=== PATIENT | female | born 1980 | race Caucasian/White ===

== ENCOUNTER 2018-08-11 13:34 | Outpatient (CLI) | payer BC ==
[2018-08-11] MEDS ORDERED: Lidocaine 4% Topical Sol 50 ML BOT ONE (15:00)
[2018-08-11] MEDS ORDERED: Sodium Chloride 0.9% 15 ML NEB ONE (15:00)
== END 2018-08-11 13:35 | disposition home or self-care (01) ==
LOC: WCC 13:34
PROVIDERS: ATTEND Family Medicine
DX: S71.102D Unspecified open wound, left thigh, subsequent encounter (principal)
CPT/HCPCS: 97605; A4218

== ENCOUNTER 2018-08-17 13:42 | Outpatient (CLI) | payer BC ==
[2018-08-17] MEDS ORDERED: Lidocaine 4% Topical Sol 50 ML BOT ONE (18:00)
[2018-08-17] MEDS ORDERED: Sodium Chloride 0.9% 15 ML NEB ONE (18:00)
== END 2018-08-17 13:43 | disposition home or self-care (01) ==
LOC: WCC 13:42
PROVIDERS: ATTEND Family Medicine
DX: T81.89XD Other complications of procedures, not elsewhere classified, subsequent encounter (principal)
CPT/HCPCS: 97605; A4218

== ENCOUNTER 2018-08-21 12:03 | Outpatient (CLI) | payer BC ==
[~2018-08-21 12:03] MED LIST: Lidocaine 4% Topical Sol 50 ML BOT ONE
== END 2018-08-21 12:04 | disposition home or self-care (01) ==
LOC: WCC 12:03
PROVIDERS: ATTEND Family Medicine
DX: T81.89XD Other complications of procedures, not elsewhere classified, subsequent encounter (principal)
CPT/HCPCS: 97605

== ENCOUNTER 2018-08-24 16:12 | Outpatient (CLI) | payer BC ==
[~2018-08-24 16:12] MED LIST changes: +Sodium Chloride 0.9% 15 ML NEB ONE
== END 2018-08-24 16:13 | disposition home or self-care (01) ==
LOC: WCC 16:12
PROVIDERS: ATTEND Family Medicine
DX: T81.89XD Other complications of procedures, not elsewhere classified, subsequent encounter (principal)
CPT/HCPCS: 97605; A4218; Q4166-KX-JC

== ENCOUNTER 2018-08-28 13:24 | Outpatient (CLI) | payer BC ==
[~2018-08-28 13:24] MED LIST changes: -Lidocaine 4% Topical Sol 50 ML BOT ONE
== END 2018-08-28 13:25 | disposition home or self-care (01) ==
LOC: WCC 13:24
PROVIDERS: ATTEND Family Medicine
DX: S71.102D Unspecified open wound, left thigh, subsequent encounter (principal)
CPT/HCPCS: 97605; A4218

== ENCOUNTER 2018-08-31 13:54 | Outpatient (CLI) | payer BC ==
--- NOTE | 2018-08-31 14:08 | HP ---
HISTORY OF PRESENT ILLNESS: Ms. Virginie Moncada is a is a very pleasant 37-year-old who presents to [facility] for evaluation of 3 nonhealing surgical wounds of the left medial thigh subsequent to coronary artery bypass grafting x3 on 07/03/2018. The nonhealing surgical wounds of the left medial thigh are at a harvest site of the greater saphenous vein. The patient states that approximately 1 month after undergoing coronary artery bypass grafting x3 she noted drainage from her left medial thigh. She states that she presented to the emergency department because of pain of her left medial thigh associated with swelling and erythema. The patient states that an ultrasound was obtained in the emergency department. She states that she was seen by Dr. Henson on 08/07/2018, in his office and on the following day underwent surgery for the infectious process of her left medial thigh on 08/08/2018. The patient states that negative pressure therapy was initiated intraoperatively. The patient was subsequently referred to the [facility] Center for assistance with dressing changes of the wound VAC. PAST MEDICAL HISTORY: 1. Coronary artery disease. 2. Diabetes mellitus. 3. History of hypertension. PAST SURGICAL HISTORY: 1. Laparoscopic sleeve gastrectomy in 2013. 2. Coronary artery bypass grafting x3 on 07/03/2018. 3. in 2016. 4. Cholecystectomy in 2017. 5. Surgery x3 on right third finger for brown recluse spider bite in [place]. MEDICATIONS: 1. Victoza. 2. Aspirin 325 mg. 3. Metoprolol. 4. Atorvastatin. 5. Lasix. 6. Potassium chloride. 7. Garlic. 8. vitamins. 9. Keflex. ALLERGIES: NO KNOWN DIAGNOSED ALLERGIES. SOCIAL HISTORY: Social history is negative for tobacco or EtOH use. FAMILY HISTORY: Family history is significant for diabetes mellitus. The patient states that her mother and father were diagnosed with diabetes mellitus. She states that she has multiple relatives on both sides of her family, who were diagnosed with diabetes mellitus. Family history is also significant for coronary artery disease. The patient states that her mother and father were both diagnosed with coronary artery disease. The patient states that she has multiple relatives on the paternal side of her family, who were diagnosed with coronary artery disease. PHYSICAL EXAMINATION: VITAL SIGNS: Temperature 97.9, pulse 91, respirations 14, blood pressure 146/96. Accu-Chek 104. GENERAL: A 37-year-old female sitting on chair in examination room, in no acute distress. HEENT: Normocephalic, atraumatic. NECK: No nuchal rigidity. CHEST: Clear to auscultation. CV: Regular rate and rhythm. ABDOMEN: Soft. EXTREMITIES: Three nonhealing surgical wounds of the left medial thigh are present, which measure approximately 3.0 x 1.5 cm, 0.2 x 0.3 cm and 0.5 x 0.4 cm. The depth of these wounds are 2.5 cm, 0.5 cm and 1 cm respectively. Granulation tissue is present within the margins of each wound. Nonviable tissue present within the margins of each wound, was debrided with an excisional full-thickness debridement. No purulent drainage is associated with any of the wounds. No cellulitis of the left lower extremity is appreciated. No maceration of the skin of the periwound of any of the wounds is noted. NEUROLOGIC: Grossly nonfocal. ASSESSMENT AND PLAN: 1. Nonhealing surgical wounds of left medial thigh as described above. The wounds are at the harvest site of the greater saphenous vein from coronary artery bypass grafting x3 on 07/03/2018, after surgery for the infectious process of her left medial thigh on 08/08/2018, negative pressure therapy was initiated intraoperatively. Dressing changes of the wound VAC will be continued here in the [facility]ound Center. The patient will be seen by Dr. Henson in 1 week. I will seen Ms. Moncada again in 2 weeks. The patient is to continue Keflex as previously prescribed. 2. Coronary artery disease. 3. Diabetes mellitus. The patient's Accu-Chek in clinic today is 104. The patient has been reminded that for optimal wound healing her blood glucoses should remain below 150. 4. History of hypertension. Job ID: [id number]
[2018-08-31] MEDS ORDERED: Sodium Chloride 0.9% 15 ML NEB ONE (18:00)
[2018-08-31] MEDS ORDERED: Lidocaine 4% Topical Sol 50 ML BOT ONE (18:00)
== END 2018-08-31 13:55 | disposition home or self-care (01) ==
LOC: WCC 13:54
PROVIDERS: ATTEND Family Medicine
DX: T81.89XD Other complications of procedures, not elsewhere classified, subsequent encounter (principal); I25.10 Atherosclerotic heart disease of native coronary artery without angina pectoris; I10 Essential (primary) hypertension; E11.9 Type 2 diabetes mellitus without complications
CPT/HCPCS: 11042; 99203; A4218; G0463

== ENCOUNTER 2018-09-04 15:14 | Outpatient (CLI) | payer BC ==
[2018-09-04] MEDS ORDERED: Sodium Chloride 0.9% 15 ML NEB ONE (17:52)
== END 2018-09-04 15:15 | disposition home or self-care (01) ==
LOC: WCC 15:14
PROVIDERS: ATTEND Family Medicine
DX: T81.89XD Other complications of procedures, not elsewhere classified, subsequent encounter (principal)
CPT/HCPCS: 97605; A4218

== ENCOUNTER 2018-09-07 14:17 | Outpatient (CLI) | payer BC | END 2018-09-07 14:18 | disposition home or self-care (01) | LOC: WCC 14:17 | PROVIDERS: ATTEND Family Medicine | DX: T81.89XD Other complications of procedures, not elsewhere classified, subsequent encounter (principal) | CPT/HCPCS: 97605; A4218 ==

== ENCOUNTER 2018-09-11 13:10 | Outpatient (CLI) | payer BC ==
[2018-09-11] MEDS ORDERED: Sodium Chloride 0.9% 15 ML NEB ONE (18:00)
== END 2018-09-11 13:11 | disposition home or self-care (01) ==
LOC: WCC 13:10
PROVIDERS: ATTEND Family Medicine
DX: T81.89XD Other complications of procedures, not elsewhere classified, subsequent encounter (principal)
CPT/HCPCS: 97605; A4218

== ENCOUNTER 2018-09-14 10:18 | Outpatient (CLI) | payer BC ==
--- NOTE | 2018-09-14 11:33 | PRG ---
DATE OF SERVICE: 09/14/2018 SUBJECTIVE: Ms. Virginie Moncada is a very pleasant 38-year-old who presents to the [facility] for evaluation of 3 nonhealing surgical wounds of the left medial thigh subsequent to coronary artery bypass grafting x3 on 07/03/2018. The nonhealing surgical wounds of the left medial thigh are at a harvest site of the greater saphenous vein. The patient stated that approximately 1 month after undergoing coronary artery bypass grafting x3, she noted drainage from her left medial thigh. She stated that she presented to the emergency department,0 because of pain of her left medial thigh associated with swelling and erythema. The patient stated that an ultrasound was obtained in the emergency department. She stated that she was seen by Dr. Henson on 08/07/2018, in his office and on the following day underwent surgery for the infectious process of her left medial thigh on 08/08/2018. The patient stated that negative pressure therapy was initiated intraoperatively. The patient was subsequently referred to the [facility] Center for assistance with dressing changes of the wound VAC, which she has been receiving 2 times per week. PHYSICAL EXAMINATION: VITAL SIGNS: Temperature 97.8, pulse 90, respirations 17, blood pressure 116/82. Accu-Chek 102. EXTREMITIES: Three nonhealing surgical wounds of the left medial thigh are present, which measure approximately 2.2 x 0.9 cm, 0.5 x 0.4 cm and 0.6 x 0.4 cm. The depth of these wounds are approximately 3 cm, 2.2 cm and 2.2 cm respectively. Granulation tissue was present within the margins of each wound. Nonviable tissue present within the margins of each wound was debrided with an excisional full-thickness debridement. No purulent drainage is associated with any of the wounds. No cellulitis of the left lower extremity is appreciated. No maceration of the skin of the periwound of any of the wounds is noted. ASSESSMENT AND PLAN: 1. Nonhealing surgical wounds of left medial thigh as described above. The wounds are at the harvest site of the greater saphenous vein from coronary artery bypass grafting x3 on 07/03/2018. After surgery for the infectious process of her left medial thigh on 08/08/2018, negative pressure therapy was initiated intraoperatively. Dressing changes of the wound VAC will be continued here in the Wound Center 2 times per week. The patient will be seen by Dr. Henson in 1 week. I will see Ms. Moncada again in 2 weeks. 2. Coronary artery disease. 3. Diabetes mellitus. The patient's Accu-Chek in clinic today is 102. The patient has been reminded that for optimal wound healing her blood glucoses should remain below 150. 4. History of hypertension. Job ID: [id number]
[2018-09-14] MEDS ORDERED: Sodium Chloride 0.9% 15 ML NEB ONE (19:54)
== END 2018-09-14 10:19 | disposition home or self-care (01) ==
LOC: WCC 10:18
PROVIDERS: ATTEND Family Medicine
DX: T81.89XD Other complications of procedures, not elsewhere classified, subsequent encounter (principal); I25.10 Atherosclerotic heart disease of native coronary artery without angina pectoris; E11.9 Type 2 diabetes mellitus without complications; I10 Essential (primary) hypertension
CPT/HCPCS: 11042; A4218

== ENCOUNTER 2018-09-18 13:14 | Outpatient (CLI) | payer BC ==
[2018-09-18] MEDS ORDERED: Lidocaine 2% 11 ML SYR ONE (18:00)
[2018-09-18] MEDS ORDERED: Sodium Chloride 0.9% 15 ML NEB ONE (18:00)
== END 2018-09-18 13:15 | disposition home or self-care (01) ==
LOC: WCC 13:14
PROVIDERS: ATTEND Family Medicine
DX: T81.89XD Other complications of procedures, not elsewhere classified, subsequent encounter (principal)
CPT/HCPCS: A4218

== ENCOUNTER 2018-09-21 10:09 | Outpatient (CLI) | payer BC | END 2018-09-21 10:10 | disposition home or self-care (01) | LOC: WCC 10:09 | PROVIDERS: ATTEND Family Medicine | DX: T81.89XD Other complications of procedures, not elsewhere classified, subsequent encounter (principal) | CPT/HCPCS: 97605; A4218 ==

== ENCOUNTER 2018-09-26 15:41 | Outpatient (CLI) | payer BC ==
[2018-09-26] MEDS ORDERED: Sodium Chloride 0.9% 15 ML NEB ONE (18:00)
== END 2018-09-26 15:42 | disposition home or self-care (01) ==
LOC: WCC 15:41
PROVIDERS: ATTEND Family Medicine
DX: T81.89XD Other complications of procedures, not elsewhere classified, subsequent encounter (principal)
CPT/HCPCS: 36416; A4218

== ENCOUNTER 2018-09-28 15:40 | Outpatient (CLI) | payer BC ==
--- NOTE | 2018-09-28 09:49 | PRG ---
DATE OF SERVICE: 09/28/2018 HISTORY OF PRESENT ILLNESS: Ms. Virginie Moncada is a very pleasant 38-year-old, who presents to the [facility] for evaluation of 3 nonhealing surgical wounds of the left medial thigh subsequent to coronary artery bypass grafting x3 on 07/03/2018. The nonhealing surgical wounds of the left medial thigh are at harvest site of the greater saphenous vein. The patient stated that approximately 1 month after undergoing coronary artery bypass grafting x3, she noted drainage from her left medial thigh. She stated that she presented to the emergency department because of pain of her left medial thigh associated with swelling and erythema. The patient stated that an ultrasound was obtained in the emergency department. She stated that she was seen by Dr. Henson on 08/07/2018 in his office and on the following day, underwent surgery for the infectious process of her left medial thigh on 08/08/2018. The patient stated that negative pressure therapy was initiated intraoperatively. The patient was subsequently referred to the [facility] Center for assistance with dressing changes of the wound VAC, which she has been receiving 2 times per week. PHYSICAL EXAMINATION: VITAL SIGNS: Temperature 97.6, pulse 84, blood pressure 133/77, Accu-Chek 127. EXTREMITIES: Only two nonhealing surgical wounds of the left medial thigh remain. The dimensions of the wounds are approximately 1.4 x 0.6 cm and 1.9 x 0.8 cm. The depths of these wounds are approximately 0.7 and 1.3 cm respectively. Granulation tissue is present within the margins of each wound. Nonviable tissue present within the margins of each wound was debrided with an excisional full-thickness debridement. No purulent drainage is associated with either wound. No erythema of the skin surrounding either wound is present. No maceration of the skin of the periwound of either wound is noted. ASSESSMENT AND PLAN: 1. Nonhealing surgical wounds of left medial thigh as described above. The wounds are at a harvest site of the greater saphenous vein from coronary artery bypass grafting x3 on 07/03/2018. At surgery for the infectious process of her left medial thigh on 08/08/2018, negative pressure therapy was initiated intraoperatively. Negative pressure therapy will be discontinued today. Dressing changes of Aquacel AG packing strips will be initiated and bordered gauze will be utilized as a secondary dressing. These dressing changes are to be performed on a daily basis after cleansing and irrigation. The patient will perform her own dressing changes. I will see Ms. Moncada again in 1 week. The patient understands and is in agreement with the preceding treatment plan. 2. Coronary artery disease. 3. Diabetes mellitus. The patient's Accu-Chek in clinic today is 127. The patient has been reminded that for optimal wound healing, her blood glucoses should remain below 150. 4. Hypertension. Job ID: [id number]
[2018-09-28] MEDS ORDERED: Sodium Chloride 0.9% 15 ML NEB ONE (18:00)
== END 2018-09-28 15:41 | disposition home or self-care (01) ==
LOC: WCC 15:40
PROVIDERS: ATTEND Family Medicine
DX: T81.89XD Other complications of procedures, not elsewhere classified, subsequent encounter (principal); E11.9 Type 2 diabetes mellitus without complications; I10 Essential (primary) hypertension; I25.10 Atherosclerotic heart disease of native coronary artery without angina pectoris
CPT/HCPCS: A4218

== ENCOUNTER 2018-10-05 15:11 | Outpatient (CLI) | payer BC ==
--- NOTE | 2018-10-05 15:40 | PRG ---
DATE OF SERVICE: 10/05/2018 HISTORY OF PRESENT ILLNESS: Ms. Virginie Moncada is a very pleasant 38-year-old, who presents to the [facility] for evaluation of 3 nonhealing surgical wounds of the left medial thigh subsequent to coronary artery bypass grafting x3 on 07/03/2018. The nonhealing surgical wounds of the left medial thigh are at a harvest site of the greater saphenous vein. The patient stated that approximately 1 month after undergoing coronary artery bypass grafting x3, she noted drainage from her left medial thigh. She stated that she presented to the emergency department because of pain of her left medial thigh associated with swelling and erythema. The patient stated the ultrasound was obtained in the emergency department. She stated that she was seen by Dr. Henson on 08/07/2018 in his office and on the following day, underwent surgery for the infectious process of her left medial thigh on 08/08/2018. The patient stated that negative pressure therapy was initiated intraoperatively. The patient was subsequently referred to the [facility] Center for assistance with dressing changes of the wound VAC, which she received two times per week. At the time of the patient's last visit, negative pressure therapy was discontinued. The patient was placed on dressing changes of Aquacel Ag packing strips. The patient has been performing these dressing changes on a daily basis after cleansing and irrigation. PHYSICAL EXAMINATION: VITAL SIGNS: Temperature 98.0, pulse 93, respirations 20, blood pressure 121/75. Accu-Chek 141. EXTREMITIES: Only two nonhealing surgical wounds of the left medial thigh remain. The dimensions of these wounds are approximately 1.0 x 0.8 cm and 0.7 x 0.3 cm. Granulation tissue is present within the margins of each wound. Nonviable tissue present within the margins of each wound was debrided with an excisional full-thickness debridement. No purulent drainage is associated with either wound. No erythema of the skin surrounding either wound is present. No maceration of the skin of the periwound of either wound is noted. ASSESSMENT AND PLAN: 1. Nonhealing surgical wounds of left medial thigh as described above. The wounds are at a harvest site of the greater saphenous vein from coronary artery bypass grafting x3 on 07/03/2018. At surgery for the infectious process of her left medial thigh on 08/08/2018, negative pressure therapy was initiated intraoperatively. The patient has completed a course of negative pressure therapy. Dressing changes of Aquacel Ag packing strips will be continued on a daily basis after cleansing and irrigation. Mepilex border or Allevyn will be utilized as a secondary dressing. The patient has been performing her own dressing changes. I will see Ms. Moncada again in 1 to 2 weeks. 2. Coronary artery disease. 3. Diabetes mellitus. The patient's Accu-Chek in clinic today is 141. The patient has been reminded that for optimal wound healing, her blood glucoses should remain below 150. 4. Hypertension. Job ID: [id number]
[2018-10-05] MEDS ORDERED: Sodium Chloride 0.9% 15 ML NEB ONE (21:31)
== END 2018-10-05 15:12 | disposition home or self-care (01) ==
LOC: WCC 15:11
PROVIDERS: ATTEND Family Medicine
DX: T81.89XD Other complications of procedures, not elsewhere classified, subsequent encounter (principal); I25.10 Atherosclerotic heart disease of native coronary artery without angina pectoris; E11.9 Type 2 diabetes mellitus without complications; I10 Essential (primary) hypertension
CPT/HCPCS: A4218

== ENCOUNTER 2018-10-26 08:29 | Outpatient (CLI) | payer BC ==
--- NOTE | 2018-10-26 09:07 | PRG ---
DATE OF SERVICE: 10/26/2018 HISTORY: Ms. Virginie Moncada is a very pleasant 38-year-old, who presents to the [facility] for evaluation of 3 nonhealing surgical wounds of the left medial thigh subsequent to coronary artery bypass grafting x3 on 07/03/2018. The patient states that the 2 remaining nonhealing surgical wounds of the left medial thigh noted at the time of the patient's last visit have healed completely. The patient states that she has not been performing any dressing changes for approximately 1 week. The patient has no other complaints today. She denies any fever or chills. PHYSICAL EXAMINATION: VITAL SIGNS: Temperature 98, pulse 99, respirations 20, and blood pressure 130/81. EXTREMITIES: The 2 nonhealing surgical wounds of the left medial thigh noted at the time of the patient's last visit have both completely healed. ASSESSMENT AND PLAN: 1. Nonhealing surgical wounds of left medial thigh as stated above. All wounds have healed completely. Ms. Moncada will be discharged from clinic today with followup on a p.r.n. basis. 2. Coronary artery disease. 3. Diabetes mellitus. 4. Hypertension. Job ID: [id number]
[2018-10-26] MEDS ORDERED: Sodium Chloride 0.9% 15 ML NEB ONE (16:09)
== END 2018-10-26 08:30 | disposition home or self-care (01) ==
LOC: WCC 08:29
PROVIDERS: ATTEND Family Medicine
DX: T81.89XD Other complications of procedures, not elsewhere classified, subsequent encounter (principal); I25.10 Atherosclerotic heart disease of native coronary artery without angina pectoris; E11.9 Type 2 diabetes mellitus without complications; I10 Essential (primary) hypertension
CPT/HCPCS: 97602; A4218